=== PATIENT | female | born 1970 | race Caucasian/White ===

== ENCOUNTER 2018-03-28 11:00 | Outpatient (RCR) | payer MEDICARE, SELFPAY ==
--- NOTE | 2018-04-21 08:46 | HP.PTEVAL_ITS ---
Patient's Visit Information BREE CORNELL is a 47 year old F referred to Physical Therapy by Richard Gray with a diagnosis of Osteogenesis imperfecta. Date of Evaluation: 03/29/18 Physical Therapist: Temo Thomas - Visit Plan Frequency: 1 day Duration: 1 Week Plan: Pt. would benefit from new wheel chair with propulsion assistance to increase ability to self propel in home and community. Pt. has marked weakness and lack of ROM in B shoulders effecting her ability to properly propel her self in her chair. - Subjective Subjective: Pt. is here today with diagnosis of osteogenesis imperfecta with need for a new wheel chair. Pt. reports having her wheel chair for atleast 5 years, but was unsure of exactly how long she has had it. She is non ambulator, but is able to complete her own transfers (modified slide transfers with out board). Pt. reports gradual increase in difficulty with propeling wheel chair over larger distances and unable to complete any inclines. Pt. is also having difficulty reaching behind her to get a large enough pull to propel WC properly. Pt. reports general UE weakness and shiffness. Pt. is hopeful to get a new wc possibly with propulsion assistance in order to increase ease with getting around and still be independent in home and community. - Pain B shoulder Pain Intensity (Out of 10): 1 Pain Intensity Range: 0, 2 - Objective POSTURE: Pt. has stunted growth of BLEs and UEs. Pt. sits on WC with good stability, but has to sit cross legged for stability. PALPATION: Pt. has no pain with palpation of B shoulders this date. NEUROLOGICAL: Pt. has 2+ biceps DTR and 1+ triceps DTR bilateral UEs. Pt. has normal sensation of bilateral UEs. ROM: Pt. has no voluntary movement of BLEs. UES- Right- wrist/elbow normal active motion; shoulder- flexion 90deg, ext 20deg, abduction 55deg, functional ER external auditory meatus; functional IR L4. LEFT- wrist/elbow normal active ROM; shoulder- flexion 89deg, abd 55deg, ext 28deg. MMT: RUE- wrist/elbow 4/5 throughout; shoulder- 4-/5 throughout. LUE- wrist/elbow 4/5 throughout; shoulder 4-/5 throughout. WC mobility- pt. it able to self porpel wc, but does have increased difficulty generating momentum. PT. tires out after 120ft. requiring assistance due to B shoulder fatigue and pain. TXs- RIKY with modified slide txs, no board. Pt. has to have equal heights of surfaces to complete. - Goals Goal 1:: Pt. to be assessed for need for new WC with propulsion assistance. Goal Time Frame: 1 day - Rehabilitation Potential Physical Therapy Diagnosis: Pt. has osteogenesis imperfecta with subsequent BUE weakness, lack of mobility and need for improved WC. Pt. would benefit from a wc propuslsion assistance mechanism to increase mobility in community and allow pt. to maintain and improve her level of independence. Rehabilitation Potential: Fair - Anticipated Interventions Patient/Client Instruction: Educate patient on: Condition, Plan of Care, Risk Factors, Benefits of Fitness Program For the Purpose of:: To improve safety, To improve health and function, To foster healthy habits, To facilitate caregiver knowledge, To improve self management, To prevent re-injury, To improve ability to perform tasks related to life management, To improve tolerance to ADL's Thank you for the opportunity to evaluate your patient. For Medicare and Medicare HMO plans, please review the plan of care and approve it. It will need to be FAXED BACK to us at [phone] for Medicare purposes. Please let me know if there are questions or concerns regarding this plan of care. Physician Signature: Date:
--- NOTE | 2018-11-03 10:56 | HP.PT.NRP ---
HP - Discharge Summary (1) - Patient Information BREE CORNELL was seen in my office for initial evaluation on 03/29/18. The following Plan of Care was established for this patient: Initial Frequency: 1 day Initial Duration: 1 Week - Anticipated Interventions Patient/Client Instruction: Educate patient on: Condition, Plan of Care, Risk Factors, Benefits of Fitness Program For the Purpose of:: To improve safety, To improve health and function, To foster healthy habits, To facilitate caregiver knowledge, To improve self management, To prevent re-injury, To improve ability to perform tasks related to life management, To improve tolerance to ADL's This patient was last seen in our office 03/29/18. Pertinent comments regarding their Physical therapy will appear below: Pt. was seen for her wheel chair evelation. Pt. has not been seen since. Pt. will be DC from PT at this point in time. At this point I will be discontinuing this patient from physical therapy. I would be happy to see this patient again in the future if found appropriate by the physician. Thank you! RICK BranhamT
== END 2018-03-28 19:00 | disposition home or self-care (01) ==
LOC: PT 11:00
PROVIDERS: Family Provider Student in an Organized Health Care Education/Training Program; PCP Student in an Organized Health Care Education/Training Program; Visit Provider Student in an Organized Health Care Education/Training Program
DX: Q78.0 Osteogenesis imperfecta (principal)
CPT/HCPCS: 97162

== ENCOUNTER 2019-05-25 12:39 | Outpatient (RCR) | payer MEDICARE, SELFPAY ==
--- NOTE | 2019-05-25 15:57 | HP.PTEVAL_ITS ---
Patient's Visit Information BREE CORNELL is a 48 year old F referred to Physical Therapy by Richard Gary DO with a diagnosis of Osteogenisis imperfecta. Date of Evaluation: 05/25/19 Physical Therapist: Dinesh Orozco, PT, ATC - Visit Plan Frequency: 1x/Week Duration: 1 Week Plan: I receommend this pt to have a new wheelchair as there is much deterioration to her current chair. I also recommend pt to have assistance with propultion as her UE's are weak and she is unable to propell further than 340' I without fatigue and B shoulder pain. Discharge - Subjective Findings: Pt osteogenisis imperfecta, scoliosis, and several cardiac issue. Pt is very small in stature. Pt reports he has a very hard time propelling her WC at times secondary to weakness throughout body and limited cardiac performance. Pt reports she becomes very weak very quickly, easpecially when she is trying to keep up with family or negotiating hills. Pt reports the current chair she has is very old and is beginning to rust in several regions. Pt reports her chair is becoming very difficult to fold up for her caregivers due to the rust. Pt reports she can float remover her LE's, but is unable to bear weight secondary to her brittle bones. Pt reports she has been in a WC for 43 years now. No Hx of ulcers. Pt reports no pain currently, but notes both of her shoulders hurt when she pushes her self in the WC. 0/10 pain at rest, 6/10 bilateral shoulder pain with propulsion. - Pain B shoulders Pain Intensity (Out of 10): 0 Pain Intensity Range: 6 Comment: wheelchair propulsion - Objective Neuro: B UE and LE sensation is WNL to light touch. ROM: R shoulder flex= 50, abd= 70, ER= 25, IR= WNL (T7). R elbow 0-75-120 degrees: L shoulder flex= 150, abd= 85, IR= WNL (T7), ER= 55 degrees. L elbow ROM 0-40-120 degrees. B hip flexion= 90 degrees. B knee ROM 0-10-90 degrees. MMT: B UE's are rated at 3+/5 throughout her available ROM. B LE's are rated at 3+/5 throughout her available ROM. Posture: Pt has significant T/S kyphosis along with significant decrease in L/S lordosis. Palpation: Pt has several calcium deposits thoughout her shoulders, tibia's, radius, and her spine. Deformity: Very short femurs bilaterally. Pt has curvature present in bilateral tibia's and radius. WC propulsion: Pt able to propel 340 feet until having to stop secondary to B shoulder pain. Propels very slowly - Goals Goal 1:: Pt will be appropriately fit for new WC - Rehabilitation Potential Physical Therapy Diagnosis: Pt has B UE/LE weakness and difficulty with mobility secondary to osteogenisis imperfecta Rehabilitation Potential: Good - Anticipated Interventions Patient/Client Instruction: Educate patient on: Condition, Plan of Care For the Purpose of:: To improve self management Thank you for the opportunity to evaluate your patient. For Medicare and Medicare HMO plans, please review the plan of care and approve it. It will need to be FAXED BACK to us at [phone] for Medicare purposes. For Medicare only, by signing this I certify the plan of care. Please let me know if there are questions or concerns regarding this plan of care. Physician Signature: Date:
== END 2019-05-25 17:00 | disposition home or self-care (01) ==
LOC: PT 12:39
PROVIDERS: Family Provider Student in an Organized Health Care Education/Training Program; PCP Student in an Organized Health Care Education/Training Program; Referring Provider Student in an Organized Health Care Education/Training Program; Visit Provider Student in an Organized Health Care Education/Training Program
DX: Z99.3 Dependence on wheelchair (principal)
CPT/HCPCS: 97161

== ENCOUNTER 2019-08-10 09:00 | Emergency (ER) | payer MEDICARE, SELFPAY ==
[2019-08-10 09:01] VITALS: BP 144/94; PULSE 98; RESP 18; TEMP 36.6; O2SAT 97; BMI 33.8
--- NOTE | 2019-08-10 09:16 | RAD_ITS ---
STUDY: X-RAY - UNILATERAL RIBS ( LEFT ) WITH CHEST REASON FOR EXAM: Female, 48 years old. Left posterior rib pain. TECHNIQUE - RIBS: 3 view(s) of the ribs. TECHNIQUE - CHEST: Single PA view of the chest. COMPARISON: None. FINDINGS - RIBS: Normal visualized ribs without a demonstrated fracture. FINDINGS - CHEST: The lungs are clear and expanded. There is no demonstrated pleural abnormality. Normal size heart. Normal mediastinum and sascha. Normal visualized pulmonary arteries. Normal visualized aortic arch and descending thoracic aorta. Marked degree of dextroscoliosis of the thoracic spine with levoscoliosis of the lumbar spine. Normal visualized ribs, clavicles, and shoulders. There is no demonstrated abnormality of the visualized soft tissue structures of the upper abdomen. RAD/Ribs Uni Min 3V w/PA Chest IMPRESSION: RIBS: Normal x-ray examination of the ribs. CHEST: Normal x-ray examination of the chest. Severe dextroscoliosis of the thoracic spine. Electronically Signed: Deny Mascorro, at 10:20 EDT , Service support ,
[2019-08-10] MEDS: HYDROcodone Bitartrate/Apap 5/325 Tablet PO (09:21)
--- NOTE | 2019-08-10 10:23 | ED.VISSUMM ---
- ER Visit Summary Date of Service: 08/10/19 Chief Complaint: Back pain History of Present Illness: The patient is a 48 F who presents with left thoracic back pain that began today. Patient states she coughed and felt a pop in her back. Patient states she has a history of brittle bones and is concerned over possible fracture. Patient states her pain is worse with deep breathing and with movement. Patient describes the pain as sharp and aching. Patient states the pain is over the left posterior thoracic area. Patient denies any radiation of her pain. Patient denies any bowel or bladder changes. Patient denies any saddle anesthesia. Physical Examination: Vital signs are stable. Patient is afebrile. Patient is in no acute distress. Musculoskeletal exam reveals tenderness over the left posterior upper ribs. There is no edema or ecchymosis. There is no bony crepitance or step-off. Heart was regular rate and rhythm. Lungs are clear and equal bilaterally. Abdomen is soft and nontender. Cranial nerves II through XII are intact. There are no focal motor or sensory deficits noted. Test Results: X-rays of the left ribs were obtained. There is no acute fracture. There is no acute cardiopulmonary process. He is on Keppra by the radiologist and myself. Emergency Department Course and Treatment: Patient was instructed to use ice to the area. Patient was instructed to take Tylenol or ibuprofen as needed for pain. Patient was instructed to follow-up with her primary care physician in 5 to 7 days. Patient understood and was agreeable with the plan. All questions were answered. Disposition: Discharge home Impression: Left thoracic strain This note was generated with [employer] dictation software. It may contain incorrect words, spelling, and punctuation that were not noted in review of the chart prior to signing ED Disposition - Plan for ED Patient: Disposition: Home or Assisted Living Diagnosis: Acute thoracic myofascial strain Instructions: Back Sprain/Strain Referrals: Richard Gray DO [Primary Care Provider] - 5-7 Days
== END 2019-08-10 11:42 | disposition home or self-care (01) ==
PROVIDERS: Emergency Provider Emergency Medicine; Family Provider Student in an Organized Health Care Education/Training Program; PCP Student in an Organized Health Care Education/Training Program
DX: S29.012A Strain of muscle and tendon of back wall of thorax, initial encounter (principal); X58.XXXA Exposure to other specified factors, initial encounter; Y93.9 Activity, unspecified; Y92.9 Unspecified place or not applicable; I10 Essential (primary) hypertension; E78.00 Pure hypercholesterolemia, unspecified; I35.9 Nonrheumatic aortic valve disorder, unspecified; Q78.0 Osteogenesis imperfecta; Z79.899 Other long term (current) drug therapy; F17.200 Nicotine dependence, unspecified, uncomplicated
CPT/HCPCS: 71101; 99284; A4216

== ENCOUNTER 2021-04-29 11:04 | Emergency (ER) | payer MEDICARE, MEDICAID, SELFPAY ==
[2021-04-29 11:05] VITALS: BP 163/106; PULSE 96; RESP 20; TEMP 36.8; O2SAT 96; BMI 33.5
--- NOTE | 2021-04-29 13:24 | CT_ITS ---
STUDY: CT ABDOMEN AND PELVIS WITH CONTRAST REASON FOR EXAM: Female, 50 years old. abdominal pain RADIATION DOSAGE (If Supplied By Facility): CTDIvol = ( 12.1 ) mGy, DLP = ( 214.60 ) mGycm TECHNIQUE: Transaxial images were obtained from the dome of the diaphragm to the symphysis pubis without oral contrast. IV 50mL Isovue-300 was administered. Sagittal and coronal images were reconstructed. Individualized dose optimization techniques were used for this CT. COMPARISON: November 16, 2011 FINDINGS: The examination is extremely limited because of the marked rotoscoliosis of the thoracolumbar spine. Marked osteoporosis of the visualized bones There is small fixed hiatal hernia Grossly the liver and spleen are normal in size and attenuation no obvious focal lesion. The kidneys are unremarkable. The large bowel loaded with stool. No dilatation of small or large bowel. There is large abdominal hernia. CT/Abdomen/Pelvis W IV Cont ONLY IMPRESSION: Limited examination due to significant rotoscoliosis of the entire spine.. Small hiatal hernia Abdominal wall hernia with bowel inside. No strangulation. Electronically Signed: Henri Wolf, at 15:49 EDT Tel , Service support ,
--- NOTE | 2021-04-29 13:27 | EDS_ITS ---
HPI HPI - GI History of Present Illness Chief Complaint: Vag Bleeding Narrative Narrative: 50-year-old female with history of large ventral hernia presenting with constipation. She states been constipated since . She has not tried any laxatives. She states she has to strain very hard to have a bowel movement which is small. Today she noted that she had some small spotting after she had a bowel movement. She is sure this is vaginal spotting. She states she went through menopause already. She does not have normal menstrual cycles. 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 She denies any vaginal discharge. She has no concern for STD. [facility] Medical History Heart murmur Hypertension Osteogenesis imperfecta Home Medications atenolol 25 mg PO DAILY 08/10/19 [History Last Taken Unknown] simvastatin 20 mg PO QHS 08/10/19 [History Last Taken Unknown] Allergy/AdvReac Type Severity Reaction Status Date / Time talc Allergy Hives Verified 08/10/19 09:06 amoxicillin [From Augmentin] AdvReac Nausea Verified 08/10/19 09:06 clavulanic acid AdvReac Nausea Verified 08/10/19 09:06 [From Augmentin] morphine AdvReac LOW BP Verified 04/29/21 11:08 Surgical History History of History of hernia repair Social History Smoking Status: Current every day smoker tobacco type: cigarettes ROS ROS ED Constitutional Constitutional ED: Denies chills, fever(s) or subjective ENT ENT ED: Denies ear pain or rhinorrhea Cardiovascular Cardiovascular: Denies chest pain or palpitations Respiratory/Chest Respiratory/Chest: Denies cough, dyspnea or sputum Gastrointestinal Gastrointestinal: Reports abdominal pain and constipation Genitourinary Genitourinary ED: Reports other Details: Vaginal spotting ; Denies dysuria or hematuria Musculoskeletal Musculoskeletal: Denies arthralgias or myalgias Integumentary Denies abscess or rash Neurologic Neurologic: Denies headache(s) or weakness Psychiatric Psychiatric: Denies anxiety or depression EXAM Physical Exam Const Vital Signs: 04/29/21 11:05 Temperature 98.3 F Temperature Source Oral Pulse Rate 96 Respiratory Rate 20 H Blood Pressure 163/106 H Blood Pressure Mean 125 Pulse Ox 96 Oxygen Delivery Method Room Air Positive well nourished General Appearance ED: NAD HEENT normocephalic and atraumatic Eyes PERRL and EOMs intact bilaterally General Eye ED: Negative for scleral icterus Neck no lymphadenopathy and supple Resp normal respiratory effort and clear to auscultation bilaterally Cardio regular rate and regular rhythm GI GI Narrative: Large ventral wall hernia. Palpation: soft Extremity full ROM General Extremety ED: Negative for edema General Extremity: Negative for edema Neuro Sensorium / Orientation: alert and oriented to person Psych mental status grossly normal and thought process normal Skin Lesions: no lesions Rashes: no rashes MDM MDM MDM Narrative Medical decision making narrative: 50-year-old female presenting with abdominal pain, constipation, concern for possibly vaginal spotting. Patient states she has been constipated for a while. She is having difficulty making large stools. She has not taken anything for constipation. After discussion with her about the spotting. She states that she has no concern for and it was minimal. She feels comfortable waiting to follow-up with her railroad car repair supervisor for this. I did obtain lab work which was all normal. CT of the abdomen pelvis shows a lot of constipation as well as an abdominal wall hernia that does not appear strangulated. Patient requested laxative for home and is given magnesium citrate. She is given return precautions. Impression: 1. Abdominal pain 2 constipation 3. Dysmenorrhea Lab Data Labs: Laboratory Results - last 24 hr 04/29/21 04/29/21 14:00 14:00 WBC 9.6 RBC 5.03 Hgb 15.6 H Hct 47.0 MCV 93.4 MCH 31.0 MCHC 33.2 RDW Std Deviation 45.4 H RDW Coeff of Maddie 13.3 Plt Count 319 MPV 8.4 Immature Gran % (Auto) 0.400 Neut % (Auto) 74.4 H Lymph % (Auto) 18.2 L Owen % (Auto) 5.0 Eos % (Auto) 1.3 Baso % (Auto) 0.7 Absolute Neuts (auto) 7.1 Absolute Lymphs (auto) 1.75 Nucleated RBC % 0 Sodium 142 Potassium 3.9 Chloride 112 H Carbon Dioxide 23.0 Anion Gap 7 BUN 12 Creatinine 0.35 L Estim Creat Clear Calc 85.00 Est GFR (MDRD) Af Amer 254 Est GFR (MDRD) Non-Af 210 BUN/Creatinine Ratio 34.4 H Glucose 73 L Calcium 9.1 Total Bilirubin 0.50 AST 14 L ALT 14 Alkaline Phosphatase 83 Troponin I High Sens 5.7 Total Protein 7.1 Albumin 4.3 Globulin 2.8 Albumin/Globulin Ratio 1.5 Lipase 90 Radiography Diagnostic Testing: Radiology Impression Abdomen/Pelvis CT 04/29/21 13:24 IMPRESSION: Limited examination due to significant rotoscoliosis of the entire spine.. Small hiatal hernia Abdominal wall hernia with bowel inside. No strangulation. Electronically Signed: Henri Wolf, at 15:49 EDT Tel , Service support , Discharge Plan Triage Chief Complaint: Vag Bleeding ED Provider: Nimesh Kapadia Dx/Rx/DC Orders Instructions: ED Constipation (Adult), ED Dysfunctional Uterine Bleeding Prescriptions: No Action atenolol 25 MG tablet 25 mg PO DAILY RF: 0 simvastatin 20 MG tablet 20 mg PO QHS RF: 0 Primary Care Provider: Richard Gray Referrals: Richard Gray, [Primary Care Provider] - Disposition Disposition: Home, Self Care
[2021-04-29] MEDS: Ondansetron 4 MG/2 ML Vial IV (14:10)
[2021-04-29 14:23] LABS: Absolute Lymphocyte Count 1.75 X10^3/uL (0.83-4.51); Absolute Neutrophil Count 7.1 X10^3/uL (2.0-7.7); Basophil# 0.07 X10^3/uL; Basophil% 0.7 % (0-1); Eosinophil# 0.12 X10^3/uL; Eosinophils% 1.3 % (0-5); Hemoglobin 15.6 g/dL (12.0-15.0); Lymphocyte # 1.75 X10^3/ul (0.83-4.51); Lymphocyte % 18.2 % (19-41); Mean Corp Hgb Conc 33.2 g/dL (32-36); Mean Corpuscular Volume 93.4 fL (81-99); Mean Platelet Vol. 8.4 fl (6.2-12.0); Monocyte# 0.48 X10^3/uL; NRBC Flagged by Analyzer 0 % (0-5); Neutrophil # 7.14 X10^3/uL (2.7-7.7); Neutrophil % 74.4 % (47-70); Platelet Count 319 K/mm3 (150-450); RBC Distribution Width CV 13.3 % (11.6-14.6); RBC Distribution Width SD 45.4 fl (35.1-43.9); Red Blood Count 5.03 M/mm3 (4.2-5.4); White Blood Count 9.6 K/mm3 (4.4-11.0)
[2021-04-29 14:45] LABS: ALB/GLOB Ratio 1.5 RATIO (0.9-2.4); AST(SGOT) 14 U/L (15-37); Alanine Aminotransfer ALT/SGPT 14 U/L (13-56); Albumin, Serum 4.3 g/dL (3.2-5.0); Alkaline Phosphatase 83 U/L (45-117); Anion Gap 7 (5-15); BUN 12 mg/dL (7-18); BUN/Creat Ratio 34.4 RATIO (10-20); Calcium,Total 9.1 mg/dL (8.5-10.1); Chloride 112 mmol/L (98-107); Creatinine, Serum 0.35 mg/dL (0.55-1.02); EST Glomerular Filtration Rate 210 mL/min (>60); Est Glom Filt Rate - Afr Amer 254 mL/min (>60); Globulin 2.8 g/dL (2.2-4.2); Glucose 73 mg/dL (74-106); Lipase 90 U/L (73-393); Potassium 3.9 mmol/L (3.5-5.1); Protein, Total 7.1 g/dL (6.4-8.2); Sodium Level 142 mmol/L (136-145); Troponin-I HS 5.7 pg/mL (3.0-53.7)
[2021-04-29 16:09] VITALS: RESP 16
[2021-04-29] MEDS: Magnesium Citrate 300 ML PO (16:09)
== END 2021-04-29 16:10 | disposition home or self-care (01) ==
PROVIDERS: Emergency Provider Student in an Organized Health Care Education/Training Program; PCP Student in an Organized Health Care Education/Training Program
DX: K59.00 Constipation, unspecified (principal); R10.9 Unspecified abdominal pain; N94.6 Dysmenorrhea, unspecified; K43.9 Ventral hernia without obstruction or gangrene; I10 Essential (primary) hypertension; Q78.0 Osteogenesis imperfecta; Z79.899 Other long term (current) drug therapy; F17.210 Nicotine dependence, cigarettes, uncomplicated
CPT/HCPCS: 74177; 80053; 83690; 84484; 85025; 96374; 99284; Q9967; A4216; J2405

== ENCOUNTER 2021-08-29 15:02 | Emergency (ER) | payer MEDICARE, MEDICAID, SELFPAY ==
[2021-08-29 15:03] VITALS: BP 172/142; PULSE 78; RESP 16; TEMP 37.2; O2SAT 99; BMI 32.5
--- NOTE | 2021-08-29 15:04 | RAD_ITS ---
HISTORY: PAIN EXAMINATION/TECHNIQUE: XR Ribs Unilateral W/ PA Chest Min 3 Views: COMPARISON: 08/10/19 FINDINGS: LINES/DEVICES: None. LUNGS: No consolidation, edema or effusion. No pneumothorax. MEDIASTINUM AND CARDIOVASCULAR STRUCTURES: Cardiac silhouette not enlarged. Central airways and mediastinal contour are unremarkable. RIBS AND OSSEOUS STRUCTURES: No evidence of an acute displaced rib fracture. Stable severe scoliosis. RAD/Ribs Uni Min 3V w/PA Chest IMPRESSION: No acute radiographic abnormality. at 1627 Reported and signed by: Mathew Hodges MD Electronically Signed: Mathew Hodges MD at 16:26 EDT Tel , Service support ,
--- NOTE | 2021-08-29 18:01 | ED.RN ---
PT AND SUPPORT PERSON VOICING FRUSTRATION WITH WAIT TIME TO BE SEEN BY DR. EXPLAINED THAT THE ED IS BUSY THIS EVENING AND WAIT TIME MAY BE LONGER. DR GODINEZ STATES HE WILL SEE PT SOON. PT SUPPORT PERSON STATES IT'S REDICULOUS THAT WE'VE BEEN HERE SINCE 3PM. WE'RE GOING TO LEAVE. DR GODINEZ INFORMED PT LEAVING ED.
== END 2021-08-29 18:00 | disposition left against medical advice (07) ==
PROVIDERS: PCP Student in an Organized Health Care Education/Training Program
DX: R52 Pain, unspecified (principal); Z53.21 Procedure and treatment not carried out due to patient leaving prior to being seen by health care provider
CPT/HCPCS: 71101

== ENCOUNTER 2022-01-07 14:43 | Emergency (ER) | payer MEDICARE, MEDICAID, SELFPAY ==
[2022-01-07 14:44] VITALS: BP 183/113; PULSE 83; RESP 15; TEMP 36.4; O2SAT 97; BMI 19.9
--- NOTE | 2022-01-07 16:55 | EKG12_ITS ---
Test Reason : Blood Pressure : / mmHG Vent. Rate : 082 BPM Atrial Rate : 082 BPM P-R Int : 140 ms QRS Dur : 074 ms QT Int : 354 ms P-R-T Axes : 045 008 018 degrees QTc Int : 413 ms Normal sinus rhythm Normal ECG Confirmed by LISY CASTLE, JOVAN ([id number]), editor map PARI BROWNE ([id number]) on 01/08/2022 9:16:00 AM Referred By: PC Confirmed By:JOVAN WASSERMAN MD
--- NOTE | 2022-01-07 17:02 | RAD_ITS ---
STUDY: X-RAY CHEST REASON FOR EXAM: Female, 51 years old. Weakness TECHNIQUE: Single AP portable view of the chest. COMPARISON: 08/29/2021 FINDINGS: EKG leads overlie the chest The lungs are clear and expanded. There is no demonstrated pleural abnormality. Normal size heart. Normal mediastinum and sascha. Normal visualized pulmonary arteries. Normal visualized aortic arch and descending thoracic aorta. Severe rotatory scoliosis. There is degenerative osteoarthritis of the bilateral shoulders. There is no demonstrated abnormality of the visualized soft tissue structures of the upper abdomen. RAD/Chest 1 View (Portable) IMPRESSION: No acute pulmonary process Severe scoliosis Electronically Signed: Juan Horan MD at 17:15 EST ,
[2022-01-07 17:05] VITALS: BP 123/74; PULSE 74; RESP 16; O2SAT 99
[2022-01-07 17:27] LABS: Bacteria 0 SEEN /hpf (None Seen); Mucous, Urine 0 SEEN /hpf (<or=2+); Red Blood Cells-Urine 0 SEEN /hpf (0-5); Squamous Epithelial Cells - UA 0 SEEN /hpf (5-10); White Blood Cells 0 SEEN /hpf (0-5)
[2022-01-07 17:29] LABS: Color, Urine Yellow (Yellow); Glucose, Dipstick Normal (Normal); Ketone-Dipstick Negative (Negative); Leukocyte Esterase-Dipstick Negative /ul (Negative); Nitrite-Dipstick Negative (Negative); Occult Blood-Urine 10 /ul (Negative); Protein-Dipstick Negative (Negative); Urine Bilirubin Dipstick Negative (Negative); Urine Clarity Clear (Clear); Urine Urobilinogen Normal (Normal); Urine pH 6.5 (5.0 - 8.0)
[2022-01-07 17:29] LABS: Absolute Lymphocyte Count 2.61 X10^3/uL (0.83-4.51); Absolute Neutrophil Count 9.1 X10^3/uL (2.0-7.7); Basophil# 0.09 X10^3/uL; Basophil% 0.7 % (0-1); Eosinophil# 0.24 X10^3/uL; Eosinophils% 1.9 % (0-5); Hematocrit 46.5 % (37-47); Lymphocyte # 2.61 X10^3/ul (0.83-4.51); Lymphocyte % 20.6 % (19-41); Mean Corp Hgb Conc 34.4 g/dL (32-36); Mean Corpuscular Hgb 31.5 pg (27.0-32.0); Mean Corpuscular Volume 91.5 fL (81-99); Mean Platelet Vol. 8.6 fl (6.2-12.0); Monocyte% 4.7 % (0-10); NRBC Flagged by Analyzer 0 % (0-5); Neutrophil # 9.07 X10^3/uL (2.7-7.7); Neutrophil % 71.8 % (47-70); Platelet Count 373 K/mm3 (150-450); RBC Distribution Width CV 13.3 % (11.6-14.6); RBC Distribution Width SD 45.7 fl (35.1-43.9); Red Blood Count 5.08 M/mm3 (4.2-5.4); White Blood Count 12.7 K/mm3 (4.4-11.0)
--- NOTE | 2022-01-07 17:53 | EDS_ITS ---
HPI History of Present Illness Chief Complaint: Dizziness Narrative Narrative: Patient presents with lightheadedness, this is been ongoing for a few days, she has osteogenesis imperfecta, she is wheelchair-bound and uses her hands to drag herself from place to place when she is not in a wheelchair. She has no vertiginous symptoms she has no vision changes. She does have some nausea especially when she gets the lightheadedness. She has noticed some polyuria and polydipsia recently, she also noticed having some palpitations. No fevers or chills, no cough or congestion. No shortness of breath. No syncopal episodes. [facility] Medical History Heart murmur Hypertension Osteogenesis imperfecta Home Medications atenolol 25 mg PO DAILY 08/10/19 [History Last Taken Unknown] simvastatin 20 mg PO QHS 08/10/19 [History Last Taken Unknown] Allergy/AdvReac Type Severity Reaction Status Date / Time talc Allergy Hives Verified 01/07/22 14:46 amoxicillin [From Augmentin] AdvReac Nausea Verified 01/07/22 14:46 clavulanic acid AdvReac Nausea Verified 01/07/22 14:46 [From Augmentin] morphine AdvReac LOW BP Verified 01/07/22 14:46 Surgical History History of History of hernia repair Social History Smoking Status: Current every day smoker tobacco type: cigarettes ROS ROS ED ROS Narrative Past medical history: Reviewed, osteogenesis imperfecta, mitral valve regurgitation, GERD, multiple surgeries for scoliosis others. Medications: Reviewed Social history: Noncontributory Review of systems: All systems negative except as indicated General: No fever. Some weakness and dizziness which is described as lightheadedness. Eyes: No visual changes ENT: No upper airway congestion, normal voice Neck: No neck pain Cardiovascular: No chest pain Respiratory: No shortness of breath or cough Gastrointestinal: No abdominal pain, nausea vomiting or diarrhea Genitourinary: No dysuria Musculoskeletal: Denies myalgias no difficulty with ambulation Skin: No rash Neurological: No memory loss, confusion or any focal weakness Psych: No recent behavioral changes Hematologic: No easy bleeding or easy bruising EXAM Physical Exam Narrative Exam Narrative: Physical exam General: Patient appears relatively comfortable in the bed. Head: Normocephalic, Atraumatic Eyes: Conjunctiva not pale ENT: Slightly dry mucous membranes Neck: Supple, Nontender, No lymphadenopathy Cardiovascular: Regular rate, Regular rhythm Respiratory: No distress, CTA bilaterally Abdomen: Soft, Nontender, Nondistended Back: No tenderness. Scoliosis is present. Extremities: Normal upper extremities with normal strength, extremely atrophied lower extremities with only some movement. Some contractures are present. No erythema or calor or signs of infection. No edema or calf pain Skin: Normal color, No rash Neurological: Alert, Normal Strength, Normal Sensation Psychological: Normal affect Const Vital Signs: 01/07/22 14:44 01/07/22 17:05 01/07/22 17:07 Temperature 97.6 F L Temperature Source Temporal Pulse Rate 83 74 Respiratory Rate 15 16 Respiratory Effort Normal Respiratory Pattern Normal Blood Pressure 183/113 H 123/74 H Blood Pressure Mean 136 90 Pulse Ox 97 99 Oxygen Delivery Method Room Air MDM MDM MDM Narrative Medical decision making narrative: Patient was given IV fluids she significantly improved she appears well. I do not find any signs of diabetes or severe dehydration, she has had a headache which is intermittent but does not have a headache at this time I reevaluated her her neurological exam is normal including finger-nose, no nystagmus. I had a long discussion with her I think she can be safely discharged home I do not believe she needs head imaging. Lab Data Labs: Laboratory Results - last 24 hr 01/07/22 01/07/22 01/07/22 16:40 17:00 17:00 WBC 12.7 H RBC 5.08 Hgb 16.0 H Hct 46.5 MCV 91.5 MCH 31.5 MCHC 34.4 RDW Std Deviation 45.7 H RDW Coeff of Maddie 13.3 Plt Count 373 MPV 8.6 Immature Gran % (Auto) 0.300 Neut % (Auto) 71.8 H Lymph % (Auto) 20.6 [place] % (Auto) 4.7 Eos % (Auto) 1.9 Baso % (Auto) 0.7 Absolute Neuts (auto) 9.1 H Absolute Lymphs (auto) 2.61 Nucleated RBC % 0 Sodium 140 Potassium 4.5 Chloride 113 H Carbon Dioxide 22.0 Anion Gap 5 BUN 12 Creatinine 0.50 L Estim Creat Clear Calc 57.19 Est GFR (MDRD) Af Amer 169 Est GFR (MDRD) Non-Af 140 BUN/Creatinine Ratio 24.2 H Glucose 86 Calcium 9.4 Total Bilirubin 0.40 AST 23 ALT 15 Alkaline Phosphatase 82 Troponin I High Sens 6 Total Protein 7.1 Albumin 4.2 Globulin 2.9 Albumin/Globulin Ratio 1.4 Urine Color Yellow Urine Clarity Clear Urine pH 6.5 Ur Specific [place] 1.010 Urine Protein Negative Urine Glucose (UA) Normal Urine Ketones Negative Urine Occult Blood 10 H Urine Nitrite Negative Urine Bilirubin Negative Urine Urobilinogen Normal Ur Leukocyte Esterase Negative Urine RBC 0 SEEN Urine WBC 0 SEEN Ur Squamous Epith Cells 0 SEEN Urine Bacteria 0 SEEN Urine Mucus 0 SEEN Radiography Diagnostic Testing: Clinical Impression(s) from Imaging Studies Chest X-Ray 01/07/22 17:02 IMPRESSION: No acute pulmonary process Severe scoliosis Electronically Signed: Juan Horan MD at 17:15 EST Reading Location ID and State: [address] [place] [address] , Service support , Discharge Plan Triage Chief Complaint: Dizziness ED Provider: Brad Naqvi Dx/Rx/DC Orders Clinical Impression: Light-headedness Instructions: Dizziness Fainting Poss Causes Prescriptions: No Action atenolol 25 MG tablet 25 mg PO DAILY RF: 0 simvastatin 20 MG tablet 20 mg PO QHS RF: 0 Primary Care Provider: Richard Gray Referrals: Richard Gray DO [Primary Care Provider] - 3-5 Days Disposition Disposition: Home, Self Care
[2022-01-07 17:57] LABS: ALB/GLOB Ratio 1.4 RATIO (0.9-2.4); AST(SGOT) 23 U/L (15-37); Alanine Aminotransfer ALT/SGPT 15 U/L (13-56); Albumin, Serum 4.2 g/dL (3.2-5.0); Alkaline Phosphatase 82 U/L (45-117); Anion Gap 5 (5-15); BUN 12 mg/dL (7-18); BUN/Creat Ratio 24.2 RATIO (10-20); Calcium,Total 9.4 mg/dL (8.5-10.1); Chloride 113 mmol/L (98-107); EST Glomerular Filtration Rate 140 mL/min (>60); Est Glom Filt Rate - Afr Amer 169 mL/min (>60); Estimated Creatinine Clearance 57.19 ml/min; Globulin 2.9 g/dL (2.2-4.2); Glucose 86 mg/dL (74-106); Potassium 4.5 mmol/L (3.5-5.1); Protein, Total 7.1 g/dL (6.4-8.2); Sodium Level 140 mmol/L (136-145); Troponin-I HS 6 pg/mL (3.0-54.0)
== END 2022-01-07 18:33 | disposition home or self-care (01) ==
PROVIDERS: Emergency Provider Emergency Medicine; PCP Student in an Organized Health Care Education/Training Program; Visit Provider Emergency Medicine
DX: R42 Dizziness and giddiness (principal); I10 Essential (primary) hypertension; Z99.3 Dependence on wheelchair; Q78.0 Osteogenesis imperfecta; F17.210 Nicotine dependence, cigarettes, uncomplicated; Z79.899 Other long term (current) drug therapy; K21.9 Gastro-esophageal reflux disease without esophagitis
CPT/HCPCS: 71045; 80053; 81001; 84484; 85025; 93005; 96360; 99282; J7040; A4216

== ENCOUNTER 2023-05-20 23:03 | Inpatient (IN) | payer MEDICARE, MEDICAID, SELFPAY ==
[2023-05-20 23:05] VITALS: BP 108/74; PULSE 96; RESP 17; TEMP 36.6; O2SAT 98; BMI 45.6
[2023-05-20] MEDS: 0.9% Normal Saline 1,000 ML 999 ML IV (23:49)
[2023-05-20 23:52] LABS: Absolute Lymphocyte Count 2.18 X10^3/uL (0.83-4.51); Absolute Neutrophil Count 17.8 X10^3/uL (2.0-7.7); Basophil# 0.11 X10^3/uL; Basophil% 0.5 % (0-1); Eosinophil# 0.14 X10^3/uL; Eosinophils% 0.6 % (0-5); Hematocrit 44.4 % (37-47); Hemoglobin 13.8 g/dL (12.0-15.0); Lymphocyte # 2.18 X10^3/ul (0.83-4.51); Lymphocyte % 10.1 % (19-41); Mean Corp Hgb Conc 31.1 g/dL (32-36); Mean Corpuscular Hgb 24.2 pg (27.0-32.0); Mean Corpuscular Volume 77.9 fL (81-99); Mean Platelet Vol. 8.5 fl (6.2-12.0); Monocyte# 1.29 X10^3/uL; NRBC Flagged by Analyzer 0 % (0-5); Neutrophil # 17.76 X10^3/uL (2.7-7.7); Neutrophil % 82.2 % (47-70); Platelet Count 525 K/mm3 (150-450); RBC Distribution Width CV 19.4 % (11.6-14.6); RBC Distribution Width SD 51.6 fl (35.1-43.9); White Blood Count 21.6 K/mm3 (4.4-11.0)
[2023-05-21] LABS: Prothrombin Time (Protime)PT. 12.8 SECONDS (11.7-14.9)
[2023-05-21 00:01] LABS: Partial Thromboplast Time 26.2 Seconds (24.1-36.2)
[2023-05-21 00:13] LABS: AST(SGOT) 24 U/L (15-37); Alanine Aminotransfer ALT/SGPT 14 U/L (13-56); Albumin, Serum 4.4 g/dL (3.2-5.0); Alkaline Phosphatase 90 U/L (45-117); Anion Gap 10 (5-15); BUN 15 mg/dL (7-18); BUN/Creat Ratio 15.2 RATIO (10-20); Bilirubin, Direct 0.13 mg/dL (0.00-0.30); Calcium,Total 9.8 mg/dL (8.5-10.1); Chloride 107 mmol/L (98-107); Creatinine, Serum 0.98 mg/dL (0.55-1.02); EST Glomerular Filtration Rate 63 mL/min (>60); Est Glom Filt Rate - Afr Amer 76 mL/min (>60); Estimated Creatinine Clearance 66.04 ml/min; Globulin 3.2 g/dL (2.2-4.2); Glucose 156 mg/dL (74-106); Lipase 92 U/L (13-75); Potassium 4.1 mmol/L (3.5-5.1); Protein, Total 7.6 g/dL (6.4-8.2); Sodium Level 138 mmol/L (136-145)
[2023-05-21 00:17] LABS: Lactic Acid 1.6 mmol/L (0.4-1.9)
[2023-05-21] MEDS: Ondansetron 4 MG/2 ML Vial IV (00:33)
--- NOTE | 2023-05-21 03:25 | RAD_ITS ---
INDICATION: NG Insertion EXAMINATION/TECHNIQUE: X-RAY - XR Abdomen 1 View: AP view upper abdomen and chest COMPARISON: Concurrent CT abdomen and pelvis. Chest x-ray from 01/07/2022. FINDINGS: Enteric tube tip at distal gastric lumen. Mild gaseous distention of bowel loops within upper abdomen. Lower abdomen excluded from [id number]. Hiatal hernia with adjacent left basilar atelectatic changes again noted. No pulmonary edema, pneumothorax or sizable pleural effusion. Heart size within normal limits. Severe scoliotic curvature of thoracolumbar spine again noted. RAD/Abdomen Single View (Portable) IMPRESSION: Adequate position of enteric tube with persistent dilated loops of bowel. Electronically Signed: Antonio Fong MD at 4:22 EDT ,
[2023-05-21] MEDS: Oxymetazoline 0.05% 1 SPRAY SPRAY.BTL 2 SPRAY NASAL (03:35)
[2023-05-21 04:36] VITALS: BP 122/85; PULSE 70; RESP 18; O2SAT 97
[2023-05-21] MEDS: 0.9% Normal Saline 1,000 ML 150 ML IV (06:05)
--- NOTE | 2023-05-21 06:15 | EX.ED.DYSGE1 ---
HPI History of Present Illness Chief Complaint: GI Bleed Informant: patient and EMS Narrative Narrative: Patient is a 52-year-old female with past medical history of osteogenesis imperfecta and congenital dwarfism. Secondary to these genetic issues she cannot ambulate and gets around by wheelchair. She also has a history of a large ventral hernia that was operated on at this facility roughly 15 years ago. Patient states she also has a known ulcer. She states she been under a great deal of stress recently as it is around the time of her mother's birthday and her mother has passed and this time of year creates added stress in her life. She states she began with bouts of nausea and vomiting today occurring around 9:30 PM. She states that the emesis was a mixture of sputum and gastric secretions with flakes of bright red blood. She denies any history of bleeding disorder or blood thinner use. However the bouts of vomiting and blood concerned her and therefore EMS was called to bring her in for evaluation [facility] Medical History Heart murmur Hypertension Osteogenesis imperfecta Home Medications atenolol 25 mg tablet 25 mg PO DAILY 08/10/19 [History Last Taken Unknown] simvastatin 20 mg tablet 20 mg PO QHS 08/10/19 [History Last Taken Unknown] albuterol sulfate 90 mcg/actuation aerosol inhaler 2 puff inhalation Q6H PRN shortness of breath or wheezing 05/21/23 [History Last Taken Unknown] cholecalciferol (vitamin D3) 1,250 mcg (50,000 unit) capsule 1,250 mcg PO QWEEK 05/21/23 [History Last Taken 05/20/23] Allergy/AdvReac Type Severity Reaction Status Date / Time talc Allergy Hives Verified 05/20/23 23:05 amoxicillin [From Augmentin] AdvReac Nausea Verified 05/20/23 23:05 clavulanic acid AdvReac Nausea Verified 05/20/23 23:05 [From Augmentin] morphine AdvReac LOW BP Verified 05/20/23 23:05 Surgical History History of History of hernia repair Social History Smoking Status: Current every day smoker tobacco type: cigarettes ROS ROS ED Constitutional Constitutional ED: Denies chills or fever(s) ENT ENT ED: Denies sore throat Cardiovascular Cardiovascular: Denies chest pain Respiratory/Chest Respiratory/Chest: Denies cough or dyspnea Gastrointestinal Gastrointestinal: Reports abdominal pain, nausea and vomiting; Denies constipation or diarrhea Genitourinary Genitourinary ED: Denies dysuria Musculoskeletal Musculoskeletal: Denies myalgias Integumentary Denies rash Neurologic Neurologic: Denies headache(s) Hematologic/Lymphatic Hematologic/Lymphatic: Denies easy bleeding or easy bruising EXAM Physical Exam Const Vital Signs: 05/20/23 23:05 05/21/23 04:36 Temperature 97.8 F Temperature Source Oral Pulse Rate 96 70 Respiratory Rate 17 18 Blood Pressure 108/74 122/85 H Blood Pressure Mean 85 97 Pulse Ox 98 97 Oxygen Delivery Method Room Air Room Air Positive well nourished General Appearance ED: Negative for pallor HEENT Reports moist mucous membranes HEENT Narrative: No dried blood or active bleeding noted in the posterior pharynx. No airway edema or compromise. No signs of infection noted in the posterior pharynx either. Eyes PERRL and EOMs intact bilaterally General Eye ED: Negative for scleral icterus Neck supple Neck Narrative: No crepitus noted Resp normal respiratory effort and clear to auscultation bilaterally Resp Narrative: Breath sounds are diminished throughout but overall clear to auscultation with no signs of respiratory distress Cardio regular rate and regular rhythm Rate: other Other Details: Radial pulses are plus 2 out of 4 bilaterally are equal and symmetric GI GI Narrative: Abdomen is soft with hypoactive bowel sounds. There is slight distention noted. Patient has a large ventral hernia present that feels reducible in nature but is painful to palpation. No voluntary guarding or rigidity no pulsatile mass. 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 Neuro oriented x3 and CN's II-XII intact bilaterally Sensorium / Orientation: alert Psych mental status grossly normal Skin no rashes or lesions noted General Skin Exam: Negative for jaundice or pallor MDM MDM MDM Narrative Medical decision making narrative: Patient presented to the ER awake and alert with stable vitals. She reported flecks of bright red blood in her emesis but denied history of bleeding disorder or blood thinner use. Patient states she was able to have a bowel movement and is passing gas but with a mild distention of her abdomen and the large hernia there is concern for a developed obstruction. Secondary to this basic blood work and a CT scan with IV contrast was obtained. White blood cell count is elevated at 21.6 however patient is afebrile and lactic acid is normal. CT scan showed dilated bowel secondary to incarcerated lower abdominal ventral hernia. There is no obvious signs of necrosis and with a normal lactic acid this goes against intestinal necrosis as well. The case was discussed with general surgery on-call and they reviewed the CT scan. They recommend NG tube be placed and patient started on Zosyn secondary to the leukocytosis. They feel however that because of her congenital dwarfism she would require a tertiary center and recommend transfer. The patient requested [facility] and therefore they were contacted. The case was discussed with the [facility] surgeon on-call. The physician agrees to accept the patient at this time recommends UA be obtained secondary to the leukocytosis. The plan of care was reviewed with the patient she is agreeable to it and this time has remained hemodynamically stable with her NG tube in place removing gastric secretions. However as there may be need for surgery to repair and correct the incarcerated hernia she was sent to a tertiary center History & Record Review Discussion w/independent historian: Patient Lab Data Attestation: I reviewed the patient's lab results. Labs: Laboratory Results - last 24 hr 05/20/23 23:35 WBC 21.6 H RBC 5.70 H Hgb 13.8 Hct 44.4 MCV 77.9 L MCH 24.2 L MCHC 31.1 L RDW Std Deviation 51.6 H RDW Coeff of Maddie 19.4 H Plt Count 525 H MPV 8.5 Immature Gran % (Auto) 0.600 Neut % (Auto) 82.2 H Lymph % (Auto) 10.1 L [place] % (Auto) 6.0 Eos % (Auto) 0.6 Baso % (Auto) 0.5 Absolute Neuts (auto) 17.8 H Absolute Lymphs (auto) 2.18 Nucleated RBC % 0 PT 12.8 INR 1.0 APTT 26.2 Sodium 138 Potassium 4.1 Chloride 107 Carbon Dioxide 21.0 Anion Gap 10 BUN 15 Creatinine 0.98 Estim Creat Clear Calc 66.04 Est GFR (MDRD) Af Amer 76 Est GFR (MDRD) Non-Af 63 BUN/Creatinine Ratio 15.2 Glucose 156 H Lactic Acid 1.6 Calcium 9.8 Total Bilirubin 0.40 Direct Bilirubin 0.13 AST 24 ALT 14 Alkaline Phosphatase 90 Total Protein 7.6 Albumin 4.4 Globulin 3.2 Lipase 92 H Radiography Diagnostic Testing: Clinical Impression(s) from Imaging Studies KUB X-Ray 05/21/23 03:25 IMPRESSION: Adequate position of enteric tube with persistent dilated loops of bowel. Electronically Signed: Antonio Fong MD at 4:22 EDT , Abdomen/Pelvis CT 05/21/23 23:34 IMPRESSION: 1. Distal small bowel obstruction secondary to incarcerated lower abdominal ventral hernia. 2. Thickened urinary bladder wall also described in prior reports. Favor chronic hypertrophy but correlate clinically and with urinalysis for possible cystitis. 3. Chronic moderate size hiatal hernia. 4. Other chronic and nonurgent findings within body of report. Electronically Signed: Antonio Fong MD at 1:49 EDT , ADDENDUM: 05/21/23 0202 IMPRESSION: 1. Distal small bowel obstruction secondary to incarcerated lower abdominal ventral hernia. 2. Thickened urinary bladder wall also described in prior reports. Favor chronic hypertrophy but correlate clinically and with urinalysis for possible cystitis. 3. Chronic moderate size hiatal hernia. 4. Other chronic and nonurgent findings within body of report. N.B. : The above Results were Read Back by Antonio Fong MD to Dawson Muñiz DO, and understanding confirmed on 05/21/2023 01:55:41 (ET). Electronically Signed: Antonio Fong MD at 1:49 EDT , Management Discussion w/another healthcare provider: Environmental Sampling Technician Discharge Plan Triage Chief Complaint: GI Bleed ED Provider: Dawson Muñiz Dx/Rx/DC Orders Clinical Impression: Small bowel obstruction, Osteogenesis imperfecta, Incarcerated hernia, Dwarfism Prescriptions: No Action atenolol 25 MG tablet 25 mg PO DAILY simvastatin 20 MG tablet 20 mg PO QHS albuterol sulfate 90 mcg/actuation HFA aerosol inhaler 2 puff INHALATION Q6H PRN (Reason: shortness of breath or wheezing) cholecalciferol (vitamin D3) 1,250 mcg (50,000 unit) capsule 1,250 mcg PO QWEEK Primary Care Provider: Richard Gray Referrals: Richard Gray DO [Primary Care Provider] - Disposition Disposition: Acute Care Hospital Discharge Location: [facility]
[2023-05-21 06:23] VITALS: RESP 18
--- NOTE | 2023-05-21 07:53 | NURSING ---
CALLED [facility] TRANSFER LINE, TALKED TO [place]. NO BED, BED STATUS IS CRITCAL. HOPING FOR DISCHARGES TO BRING SOME PATIENTS IN.
--- NOTE | 2023-05-21 08:57 | NURSING ---
CALLED [facility] TRANSFER LINE, TALKED TO RACHEL. ACCEPTING SURGEON IS DR GEORGE. NO BED TIL MAYBE THIS AFTERNOON, ALL DEPENDS ON DISCHARGES
--- NOTE | 2023-05-21 08:59 | HP.PCM.SX_ITS ---
HPI - General HPI Narrative BREE CORNELL, is a 52 F who presents with abdominal pain and vomiting. The patient came into the emergency room last night having vomiting at home and abdominal pain. Her hernia was reduced. She had an NG placed. She says she is not having much abdominal pain this morning. She says she is still passing gas and had a bowel movement in the ER. [facility] Medical History Heart murmur Hypertension Osteogenesis imperfecta Home Medications atenolol 25 mg tablet 25 mg PO DAILY 08/10/19 [History Last Taken Unknown] simvastatin 20 mg tablet 20 mg PO QHS 08/10/19 [History Last Taken Unknown] albuterol sulfate 90 mcg/actuation aerosol inhaler 2 puff inhalation Q6H PRN shortness of breath or wheezing 05/21/23 [History Last Taken Unknown] cholecalciferol (vitamin D3) 1,250 mcg (50,000 unit) capsule 1,250 mcg PO QWEEK 05/21/23 [History Last Taken 05/20/23] Allergy/AdvReac Type Severity Reaction Status Date / Time talc Allergy Hives Verified 05/20/23 23:05 amoxicillin [From Augmentin] AdvReac Nausea Verified 05/20/23 23:05 clavulanic acid AdvReac Nausea Verified 05/20/23 23:05 [From Augmentin] morphine AdvReac LOW BP Verified 05/20/23 23:05 Surgical History History of History of hernia repair Social History Smoking Status: Current every day smoker tobacco type: cigarettes ROS Constitutional Constitutional: Denies anorexia, chills or fatigue Eyes Eyes: Denies blurry vision ENT HEENT: Denies abnormal hearing Cardiovascular Cardiovascular: Denies chest pain Respiratory/Chest Respiratory/Chest: Denies cough Gastrointestinal Gastrointestinal: Reports abdominal pain, nausea and vomiting; Denies change in bowel habits Genitourinary Genitourinary: Denies change in urinary stream Musculoskeletal Musculoskeletal: Denies abnormal gait Integumentary Integumentary: Denies jaundice Neurologic Neurologic: Denies abnormal gait Psychiatric Psychiatric: Denies anxiety Vital Signs Vital Signs Vital Signs: 05/20/23 23:05 05/21/23 04:36 05/21/23 06:23 Temperature 97.8 F Temperature Source Oral Pulse Rate 96 70 Respiratory Rate 17 18 18 Blood Pressure 108/74 122/85 H Blood Pressure Mean 85 97 Pulse Ox 98 97 Oxygen Delivery Method Room Air Room Air Weight Weight: 137 lb 5.568 oz Body Mass Index (BMI) 45.6 Physical Exam Const oriented x3 Resp normal respiratory effort Cardio regular rate and regular rhythm GI soft to palpation and non-tender GI Narrative: Ventral hernia which is easily reducible and soft Results Lab / Micro Data 05/20/23 23:35 05/20/23 23:35 Labs: Laboratory Results - last 24 hr 05/20/23 23:35: WBC 21.6 H, RBC 5.70 H, Hgb 13.8, Hct 44.4, MCV 77.9 L, MCH 24.2 L, MCHC 31.1 L, RDW Std Deviation 51.6 H, RDW Coeff of Maddie 19.4 H, Plt Count 525 H, MPV 8.5, Immature Gran % (Auto) 0.600, Neut % (Auto) 82.2 H, Lymph % (Auto) 10.1 L, [place] % (Auto) 6.0, Eos % (Auto) 0.6, Baso % (Auto) 0.5, Absolute Neuts (auto) 17.8 H, Absolute Lymphs (auto) 2.18, Nucleated RBC % 0, PT 12.8, INR 1.0, APTT 26.2, Sodium 138, Potassium 4.1, Chloride 107, Carbon Dioxide 21.0, Anion Gap 10, BUN 15, Creatinine 0.98, Estim Creat Clear Calc 66.04, Est GFR (MDRD) Af Amer 76, Est GFR (MDRD) Non-Af 63, BUN/Creatinine Ratio 15.2, Glucose 156 H, Lactic Acid 1.6, Calcium 9.8, Total Bilirubin 0.40, Direct Bilirubin 0.13, AST 24, ALT 14, Alkaline Phosphatase 90, Total Protein 7.6, Albumin 4.4, Globulin 3.2, Lipase 92 H Radiology Impression KUB X-Ray 05/21/23 03:25 IMPRESSION: Adequate position of enteric tube with persistent dilated loops of bowel. Electronically Signed: Antonio Fong MD at 4:22 EDT , Abdomen/Pelvis CT 05/21/23 23:34 IMPRESSION: 1. Distal small bowel obstruction secondary to incarcerated lower abdominal ventral hernia. 2. Thickened urinary bladder wall also described in prior reports. Favor chronic hypertrophy but correlate clinically and with urinalysis for possible cystitis. 3. Chronic moderate size hiatal hernia. 4. Other chronic and nonurgent findings within body of report. Electronically Signed: Antonio Fong MD at 1:49 EDT , ADDENDUM: 05/21/23 0202 IMPRESSION: 1. Distal small bowel obstruction secondary to incarcerated lower abdominal ventral hernia. 2. Thickened urinary bladder wall also described in prior reports. Favor chronic hypertrophy but correlate clinically and with urinalysis for possible cystitis. 3. Chronic moderate size hiatal hernia. 4. Other chronic and nonurgent findings within body of report. N.B. : The above Results were Read Back by Antonio Fong MD to Dawson Muñiz DO, and understanding confirmed on 05/21/2023 01:55:41 (ET). Electronically Signed: Antonio Fong MD at 1:49 EDT , Assessment & Plan Assessment/Plan (1) Incarcerated hernia: (2) Small bowel obstruction: PLAN: Plan The patient has a complex abdominal wall history. She has had ventral hernia repair in the past with infection of mesh and removal of mesh. She has this chronic hernia in her lower abdomen and she came in last night had a CT scan which showed that there is a possible obstruction related to the hernia. This morning when I saw her it appeared that her hernia is soft and easily reducible. She seems to be gagging from the NG so I will have her removed. She can do sips of clear liquids and I will wait and see if she has more bowel function and feeling better. If her nausea subsides we may be able to start a diet and she may be able to follow-up as an outpatient with a hernia surgeon at a tertiary center. We do have a transfer in but there are no beds available so I will admit her for observation until then. I will recheck her labs and continue to IV hydrate. If she starts having bowel function and feeling better I will discharge her home to follow-up with a surgeon in [place] if the transfer does not happen in time. I do not feel that I would be able to adequately repair this hernia here as it is large and recurrent and she has loss of domain due to her size. Giovanny Ghotra MD Pager: [facility] [address] [place] [address], [address] [place] [address] Office:
--- NOTE | 2023-05-21 09:09 | ED.RN ---
Removed NG tube and gave pt. ice chips her Dr. Ghotra's order.
[2023-05-21 09:11] LABS: Mucous, Urine 0 SEEN /hpf (<or=2+)
[2023-05-21 09:16] LABS: Color, Urine Yellow (Yellow); Glucose, Dipstick Normal (Normal); Ketone-Dipstick 15 mg/dl (Negative); Leukocyte Esterase-Dipstick 100 /ul (Negative); Nitrite-Dipstick Negative (Negative); Occult Blood-Urine 10 /ul (Negative); Protein-Dipstick 15 mg/dl (Negative); Specific Gravity, Urine 1.015 (1.002-1.030); Urine Bilirubin Dipstick Negative (Negative); Urine Clarity Sl. Cloudy (Clear); Urine Urobilinogen Normal (Normal)
[2023-05-21 09:44] LABS: Bacteria 1+ /hpf (None Seen); Red Blood Cells-Urine 0-5 SEEN /hpf (0-5); Squamous Epithelial Cells - UA 0-5 SEEN /hpf (5-10); White Blood Cells 5-10 SEEN /hpf (0-5)
[2023-05-21 09:54] VITALS: BP 141/86; PULSE 100; RESP 16; TEMP 36.6; O2SAT 94
--- NOTE | 2023-05-21 10:29 | NURSING ---
[address], SBO
--- NOTE | 2023-05-21 10:32 | NURSING ---
CALLED [facility] TRANSFER LINE AND THEY UPDATED THEIR FILES.
[2023-05-21 11:00] VITALS: BMI 33.0
[2023-05-21 11:13] VITALS: BP 137/89; PULSE 103; RESP 18; TEMP 36.6; O2SAT 94
[2023-05-21] MEDS: 0.9% Normal Saline 1,000 ML 100 ML IV (11:25)
--- NOTE | 2023-05-21 14:04 | DS.PCM_ITS ---
Providers Date of Admission: 05/21/23 Primary Care Physician: Dr. Richard Gray, Reason For Visit: SMALL BOWEL OBSTRUCTION Diagnosis Discharge Diagnosis (1) Incarcerated hernia: Status: Acute Code(s): K46.0 - Unspecified abdominal hernia with obstruction, without gangrene (2) Small bowel obstruction: Status: Acute Code(s): K56.609 - Unspecified intestinal obstruction, unspecified as to partial versus complete obstruction Plan The patient has a complex abdominal wall history. She has had ventral hernia repair in the past with infection of mesh and removal of mesh. She has this chronic hernia in her lower abdomen and she came in last night had a CT scan which showed that there is a possible obstruction related to the hernia. This morning when I saw her it appeared that her hernia is soft and easily reducible. She seems to be gagging from the NG so I will have her removed. She can do sips of clear liquids and I will wait and see if she has more bowel function and feeling better. If her nausea subsides we may be able to start a diet and she may be able to follow-up as an outpatient with a hernia surgeon at a tertiary center. We do have a transfer in but there are no beds available so I will admit her for observation until then. I will recheck her labs and continue to IV hydrate. If she starts having bowel function and feeling better I will discharge her home to follow-up with a surgeon in [place] if the transfer does not happen in time. I do not feel that I would be able to adequately repair this hernia here as it is large and recurrent and she has loss of domain due to her size. Giovanny Ghotra MD Pager: [facility] [address] [place] [address], [address] [place] [phone] Office: Medications at Discharge Home Medications atenolol 25 mg tablet 25 mg PO DAILY 08/10/19 simvastatin 20 mg tablet 20 mg PO QHS 08/10/19 albuterol sulfate 90 mcg/actuation aerosol inhaler 2 puff inhalation Q6H PRN shortness of breath or wheezing 05/21/23 cholecalciferol (vitamin D3) 1,250 mcg (50,000 unit) capsule 1,250 mcg PO QWEEK 05/21/23 Hospital Course Summary of Care Provided Hospital Course: Pt was admitted with SBO from ER until transfer. She has a complex abdominal wall hernia which caused bowel obstruction. The bowel was able to be reduced but she will need complex repair or this will likely obstruct again. Weight / BMI Weight Weight: 61 lb Body Mass Index (BMI) 33.0 ABG / Lab / Microbiology Data 05/20/23 23:35 05/20/23 23:35 Laboratory: Laboratory Results - last 24 hr 05/20/23 23:35: WBC 21.6 H, RBC 5.70 H, Hgb 13.8, Hct 44.4, MCV 77.9 L, MCH 24.2 L, MCHC 31.1 L, RDW Std Deviation 51.6 H, RDW Coeff of Maddie 19.4 H, Plt Count 525 H, MPV 8.5, Immature Gran % (Auto) 0.600, Neut % (Auto) 82.2 H, Lymph % (Auto) 10.1 L, Darke % (Auto) 6.0, Eos % (Auto) 0.6, Baso % (Auto) 0.5, Absolute Neuts (auto) 17.8 H, Absolute Lymphs (auto) 2.18, Nucleated RBC % 0, PT 12.8, INR 1.0, APTT 26.2, Sodium 138, Potassium 4.1, Chloride 107, Carbon Dioxide 21.0, Anion Gap 10, BUN 15, Creatinine 0.98, Estim Creat Clear Calc 66.04, Est GFR (MDRD) Af Amer 76, Est GFR (MDRD) Non-Af 63, BUN/Creatinine Ratio 15.2, Glucose 156 H, Lac tic Acid 1.6, Calcium 9.8, Total Bilirubin 0.40, Direct Bilirubin 0.13, AST 24, ALT 14, Alkaline Phosphatase 90, Total Protein 7.6, Albumin 4.4, Globulin 3.2, Lipase 92 H 05/21/23 09:07: Urine Color Yellow, Urine Clarity Sl. Cloudy, Urine pH 5.0, Ur Specific [place] 1.015, Urine Protein 15 H, Urine Glucose (UA) Normal, Urine Ketones 15 H, Urine Occult Blood 10 H, Urine Nitrite Negative, Urine Bilirubin Negative, Urine Urobilinogen Normal, Ur Leukocyte Esterase 100 H, Urine RBC 0-5 SEEN, Urine WBC 5-10 SEEN, Ur Squamous Epith Cells 0-5 SEEN, Urine Bacteria 1+, Urine Mucus 0 SEEN Radiography Diagnostic Testing: Radiology Impression KUB X-Ray 05/21/23 03:25 IMPRESSION: Adequate position of enteric tube with persistent dilated loops of bowel. Electronically Signed: Antonio Fong MD at 4:22 EDT , Abdomen/Pelvis CT 05/21/23 23:34 IMPRESSION: 1. Distal small bowel obstruction secondary to incarcerated lower abdominal ventral hernia. 2. Thickened urinary bladder wall also described in prior reports. Favor chronic hypertrophy but correlate clinically and with urinalysis for possible cystitis. 3. Chronic moderate size hiatal hernia. 4. Other chronic and nonurgent findings within body of report. Electronically Signed: Antonio Fong MD at 1:49 EDT , ADDENDUM: 05/21/23 0202 IMPRESSION: 1. Distal small bowel obstruction secondary to incarcerated lower abdominal ventral hernia. 2. Thickened urinary bladder wall also described in prior reports. Favor chronic hypertrophy but correlate clinically and with urinalysis for possible cystitis. 3. Chronic moderate size hiatal hernia. 4. Other chronic and nonurgent findings within body of report. N.B. : The above Results were Read Back by Antonio Fong MD to Dawson Muñiz DO, and understanding confirmed on 05/21/2023 01:55:41 (ET). Electronically Signed: Antonio Fong MD at 1:49 EDT , Meaningful Use Info Meaningful Use Diagnoses (Choose all that apply): None applicable Discharge Plan Admission Admit Date/Time: 05/21/23 08:56 Attending Provider: Giovanny Ghotra Primary Care Provider: Richard Gray Discharge Orders/Prescriptions Prescriptions: Continued atenolol 25 MG tablet 25 mg PO DAILY simvastatin 20 MG tablet 20 mg PO QHS albuterol sulfate 90 mcg/actuation HFA aerosol inhaler 2 puff INHALATION Q6H PRN (Reason: shortness of breath or wheezing) cholecalciferol (vitamin D3) 1,250 mcg (50,000 unit) capsule 1,250 mcg PO QWEEK Referrals / Follow Up: Richard Gray DO [Primary Care Provider] - Disposition Disposition (needs filled in before D/C Order can be placed): [facility]
--- NOTE | 2023-05-21 14:15 | NURSING ---
called report to [facility]. H71 bed 3. xiomara SIERRA took report. dr chappell notified. pt notified of transfer.
--- NOTE | 2023-05-21 23:34 | CT_ITS ---
We are attempting to reach an attending provider to discuss findings. An addendum with communication details will be sent when the communication is complete. INDICATION: Abdominal pain, vomiting for hours with blood EXAMINATION: CT Abdomen And Pelvis W/ Contrast Injection TECHNIQUE: Helically acquired images were obtained of the abdomen and pelvis following IV contrast. 2-D reconstructions reviewed. A radiation dose optimization technique was used for this scan. IV Contrast dosage and agent: 100 cc [id number] Oral contrast: None. COMPARISON: CT abdomen and pelvis from 04/29/2021 FINDINGS: LOWER CHEST: Moderate size hiatal hernia again noted. Minimal basilar atelectasis. Heart size within normal limits. LIVER: Benign 1.5 cm cyst within dome of liver. No concerning lesion. GALLBLADDER AND BILIARY TREE: No calcified gallstones identified. No gallbladder wall edema demonstrated. No significant biliary ductal dilation. PANCREAS: No discrete mass or peripancreatic edema. SPLEEN: Normal size without focal cystic or solid mass. ADRENAL GLANDS: Unremarkable. KIDNEYS AND URETERS: Normal renal size and position. No perinephric edema or hydronephrosis. No concerning lesion. Benign subcentimeter cyst at lower pole right kidney. PERITONEUM: No significant free fluid. No peritoneal free air detected. RETROPERITONEUM: No retroperitoneal mass or pathologic fluid collection. BOWEL: Normal appendix located between cecum and lower pole of right kidney. There are multiple dilated loops of small bowel with air-fluid levels, measuring up to 3.5 cm diameter within lower abdomen. Large chronic lower abdominal ventral hernia contains multiple loops of dilated small bowel and several loops of decompressed small bowel. There are some narrowed loops of small bowel at level of hernia neck. LYMPH NODES: No enlarged mesenteric or retroperitoneal lymph nodes. VESSELS: Atherosclerosis with chronic attenuated size of bilateral iliac and proximal femoral arteries. URINARY BLADDER: Urinary bladder is empty with suggestion of circumferential wall thickening. REPRODUCTIVE ORGANS: No pelvic masses. ABDOMINAL WALL: Large chronic lower abdominal ventral hernia containing multiple loops of dilated and decompressed small bowel. 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 CT/Abdomen/Pelvis W IV Cont ONLY IMPRESSION: 1. Distal small bowel obstruction secondary to incarcerated lower abdominal ventral hernia. 2. Thickened urinary bladder wall also described in prior reports. Favor chronic hypertrophy but correlate clinically and with urinalysis for possible cystitis. 3. Chronic moderate size hiatal hernia. 4. Other chronic and nonurgent findings within body of report. Electronically Signed: Antonio Fong MD at 1:49 EDT ,
== END 2023-05-21 15:23 | disposition short-term general hospital (02) | DRG 394 ==
LOC: ED 05-21 09:11 → MS3 05-21 09:53
PROVIDERS: Admitting Provider Surgery; Emergency Provider Emergency Medicine; PCP Student in an Organized Health Care Education/Training Program; Visit Provider Surgery
DX: K43.6 Other and unspecified ventral hernia with obstruction, without gangrene (principal); Q78.0 Osteogenesis imperfecta; N30.90 Cystitis, unspecified without hematuria; I10 Essential (primary) hypertension; K44.9 Diaphragmatic hernia without obstruction or gangrene; F17.210 Nicotine dependence, cigarettes, uncomplicated; R93.41 Abnormal radiologic findings on diagnostic imaging of renal pelvis, ureter, or bladder
CPT/HCPCS: 74018; 74177; 80048; 80076; 81001; 83605; 83690; 85025; 85610; 85730; 99285; 99406; J7030; J7050; Q9967; A4216; J2405